=== PATIENT | female | born 1985 | race Two or more races ===

== ENCOUNTER 2016-08-19 10:37 | Emergency (ER) | payer MEDICAID, OTHER ==
[~2016-08-19] VITALS: Ht 167.6 cm; Wt 108.9 kg
[2016-08-19 10:48] VITALS: BP 103/56
== END 2016-08-19 12:19 | disposition home or self-care (01) ==
LOC: ER 10:37
DX: A08.4 Viral intestinal infection, unspecified (principal); G89.29 Other chronic pain; M54.5 Low back pain